=== PATIENT | female | born 1985 | race Caucasian/White ===

== ENCOUNTER 2020-09-30 08:01 | Emergency (ER) | payer OTHER ==
[~2020-09-30 08:01] MED LIST: CLARITIN10 MG PO; FLONASE 0.05% N16 GM; K-TAB ER20 MEQ PO
[2020-09-30 08:56] LABS: HEMOGLOBIN 12.1 gm/dl (12.3-15.3); RED BLOOD COUNT 4.14 M/UL (4.00-5.10); WHITE BLOOD COUNT 6.9 K/UL (4.5-11.0)
[2020-09-30 09:27] LABS: BUN/CREATININE RATIO 18 (0-10)
[2020-09-30] MEDS ORDERED: IBUPROFEN800 MG PO (11:46)
== END 2020-09-30 12:20 | disposition home or self-care (01) ==
LOC: ER1 08:01
PROVIDERS: Emergency Medicine
DX: N20.1 Calculus of ureter (principal)
CPT/HCPCS: 80053; 81001; 83690; 84703; 85025; 96374; 96375; 99284; J1885; J2405; J7030; Q9967

== ENCOUNTER 2021-05-04 21:11 | Emergency (ER) | payer SELFPAY ==
[~2021-05-04 21:11] MED LIST changes: +IBUPROFEN800 MG PO
== END 2021-05-05 | disposition home or self-care (01) ==
LOC: ER1 21:11
DX: R51.9 Headache, unspecified (principal); R11.2 Nausea with vomiting, unspecified; Z87.442 Personal history of urinary calculi
CPT/HCPCS: 99283